=== PATIENT | male | born 1970 | race Two or more races ===

== ENCOUNTER 2022-03-20 02:02 | Emergency (ER) | payer OTHER ==
[~2022-03-20] VITALS: Ht 160 cm; Wt 54.4 kg
[2022-03-20] MEDS ORDERED: PROTECT PLUS S1 EACH PO (07:30)
[2022-03-20] MEDS ORDERED: CLOTRIMAZOLE10 MG MM ×2 (08:07)
== END 2022-03-20 08:11 ==
LOC: ER 02:02
DX: R42 Dizziness and giddiness (principal); E86.0 Dehydration

== ENCOUNTER → 2022-06-08 | Emergency (ER) | payer OTHER ==
[~2022-06-08] VITALS: Ht 160 cm; Wt 49.9 kg
[~2022-06-08] MED LIST: CLOTRIMAZOLE10 MG MM; PROTECT PLUS S1 EACH PO
== END | disposition left against medical advice (07) ==
LOC: ER 03:44
DX: R51.9 Headache, unspecified (principal)